=== PATIENT | male | born 1990 | race Caucasian/White ===

== ENCOUNTER 2016-09-10 11:44 | Emergency (ER) | payer MEDICAID, OTHER ==
[~2016-09-10] VITALS: Wt 44.5 kg
[~2016-09-10 11:44] MED LIST: NO MEDS TAKEN
[2016-09-10] MEDS ORDERED: IBUPROFEN LIQUID (PED) 20 MG/ML CUP PO STA (12:44)
[2016-09-10] MEDS ORDERED: IBUPROFEN 200 MG TAB PO ONE (13:00)
[2016-09-10] MEDS ORDERED: LIDOCAINE 4% CR TOP ONE (13:00)
[2016-09-10] MEDS ORDERED: SULF20OR7 PO (13:08)
--- NOTE | 2016-09-10 13:10 | ERD ---
ER Documentation Chief Complaint Date/Time DATE: 09/10/16 TIME: 13:08 Chief Complaint left hand index finger x4days HPI This 26-year-old male complains of left index finger swelling and redness near the nail for last 4 days. His mother states that he does put his fingers in his mouth a lot. He is developmentally delayed. ROS All systems reviewed and are negative except as per history of present illness. Medications Home Meds Active Scripts Sulfamethoxazole/Trimethoprim (Sulfatrim 800-160 mg/20 ml Griselda) 800-160 mg/20 mL Susp, 20 ML PO BID for 7 Days, BOTTLE Prov:RAI ESCALERA MD 09/10/16 Reported Medications [No Meds Taken] No Conflict Check 05/29/12 Allergies Allergies: Coded Allergies: No Known Allergy (Unverified , 09/10/16) PMhx/Soc History of Surgery: No Anesthesia Reaction: No Hx Neurological Disorder: No Hx Respiratory Disorders: No Hx Cardiac Disorders: No Hx Psychiatric Problems: No Hx Miscellaneous Medical Probl: Yes (DOWNS SYNDROME) Hx Alcohol Use: No Hx Substance Use: No Hx Tobacco Use: No Smoking Status: Never smoker Physical Exam Vitals Vital Signs Date Time Temp Pulse Resp B/P Pulse Ox O2 Delivery O2 Flow Rate FiO2 09/10/16 11:48 98.5 77 20 111/64 96 Physical Exam Const: [] Alert, [id number]. Head: Atraumatic Eyes: Normal Conjunctiva ENT: Normal External Ears, Nose and Mouth. Neck: Full range of motion..~ No meningismus. Resp: Clear to auscultation bilaterally Cardio: Regular rate and rhythm, no murmurs Abd: Soft, non tender, non distended. Normal bowel sounds Skin: No petechiae or rashes. There is some redness and fluctuance at the base of the left index fingernail. There is no appreciable bony tenderness or deformities. Back: No midline or flank tenderness Ext: No cyanosis, or edema Neur: Awake and alert Psych: Normal Mood and Affect Results 24 hrs Current Medications Medications (Trade) Dose Ordered Sig/Wong Route PRN Reason Start Time Stop Time Status Last Admin Dose Admin Lidocaine (Lmx 4% Plus) 1 applic ONCE ONCE TOP 09/10/16 13:00 09/10/16 13:01 DC 09/10/16 12:48 Ibuprofen (Motrin) 400 mg ONCE ONCE PO 09/10/16 13:00 09/10/16 13:01 DC Ibuprofen (Motrin Liquid (Ped)) 400 mg ONCE STAT PO 09/10/16 12:44 09/10/16 12:45 DC 09/10/16 12:48 Procedures/MDM Patient presents with signs and symptoms of acute paronychia left index finger. Procedure note-the left index finger was anesthetized using LMX cream. An 18- gauge needle was used to unroofed the lesion and pus was expressed. The patient tolerated procedure well and the wound was dressed. Patient was discharged home with mother with instructions for warm compresses or soaks and instructions to recheck for increased redness, swelling, new or worsening symptoms with primary care doctor this week Departure Diagnosis: Primary Impression: Paronychia Laterality: left Qualified Code: L03.012 - Paronychia, left Condition: Stable Patient Instructions: Paronychia Additional Instructions: Warm soaks at home. Recheck for worsening redness, swelling, fevers, new symptoms. RAI ESCALERA MD Sep 10, 2016 13:10
== END 2016-09-10 13:50 | disposition home or self-care (01) ==
LOC: FTE 11:44
DX: L03.012 Cellulitis of left finger (principal); F88 Other disorders of psychological development
CPT/HCPCS: Z7502; Z7610; 99283

== ENCOUNTER 2018-08-21 11:51 | Emergency (ER) | END 2018-08-21 14:06 | disposition home or self-care (01) ==